=== PATIENT | female | born 1960 | race Hispanic/Latino ===

== ENCOUNTER 2021-04-24 07:01 | Day surgery (SDC) | payer OTHER ==
[2021-04-22 11:05] LABS: Hematocrit 42.2 % (30.3-42.9); Hemoglobin 13.1 gm/dl (10.1-14.3); Mean Corpuscular HGB Conc 31 % (30-34); Mean Corpuscular Volume 82 fl (79-97); Platelet Count 289 K/mm3 (140-440); Red Blood Count 5.13 M/mm3 (3.65-5.03); Red Cell Distribution Width 14.8 % (13.2-15.2)
[2021-04-22 11:22] LABS: BUN/Creatinine Ratio 21; Blood Urea Nitrogen 15 mg/dL (7-17); Hemolysis Index 2
[2021-04-24] MEDS ORDERED: LACTATED RINGERS 1,000 ML IV SCH (07:40)
[2021-04-24] MEDS ORDERED: LACTATED RINGERS 1,000 ML ONE (07:47)
--- NOTE | 2021-04-24 07:50 | History and Physical Report ---
History of Present Illness Date of examination: 04/24/21 Chief complaint: Surgery Admit History of present illness: Akila Faulkner is a 60 y/o Female that presents to [facility] for surgical intervention. She has a history of failed back syndrome, s/p multiple lumbar surgeries. She underwent SCS trial several weeks ago, which conferred significant relief of her pain. She is here today for permanent implantation. Medications and Allergies Allergies Allergy/AdvReac Type Severity Reaction Status Date / Time adhesive AdvReac Intermediate Rash Verified 04/15/21 16:14 ketorolac [From Toradol] AdvReac Intermediate Rash Verified 04/15/21 16:14 Penicillins AdvReac Intermediate Rash Verified 04/15/21 16:14 Sulfa (Sulfonamide AdvReac Intermediate Rash Verified 04/15/21 16:14 Antibiotics) Home Medications Medication Instructions Recorded Confirmed Last Taken Type B-Complex with Vitamin C [Super B 1 each PO DAILY 04/15/21 04/15/21 Unknown History Complex-Vitamin C] Lexapro 20 mg PO DAILY 04/15/21 04/15/21 Unknown History amLODIPine [Norvasc] 5 mg PO DAILY 04/15/21 04/15/21 Unknown History traZODone [Desyrel] 50 mg PO DAILY 04/15/21 04/15/21 Unknown History Active Meds: Active Medications Clindamycin HCl (Cleocin 900 Mg/50 Ml) 900 mg in 50 mls @ 100 mls/hr IV PREOP ONE; Protocol Stop: 04/24/21 09:29 Review of Systems All systems: negative (what is specified in HPI) Physical Examination - Vital Signs Vital Signs: Vital Signs Temp Pulse Resp BP Pulse Ox 98.2 F 87 20 162/102 95 04/22/21 10:35 04/22/21 10:35 04/22/21 10:35 04/22/21 10:35 04/22/21 10:35 - Physical Exam Narrative exam: seen and examined morbid obesity no acute distress NC/AT RRR breathing non-labored abdomen soft no cyanosis or clubbing A&Ox3 CNII-XII intact motor strength full sensation intact reflexes +2 Results - Laboratory Findings CBC and BMP: 04/22/21 00:01 04/22/21 00:01 Abnormal Lab Findings: Abnormal Labs 04/22/21 04/22/21 00:01 00:01 RBC 5.13 H MCH 26 L Glucose 117 H Assessment and Plan 60 y/o F w/ failed back syndrome, lumbosacral radiculitis -to OR for thoracic laminotomy for SCS placement
[2021-04-24] MEDS ORDERED: VANCOMYCIN/NS 1 GM/250 ML 1 GM/250 ML BAG IV NR (09:00)
[2021-04-24] MEDS ORDERED: VANCOMYCIN 2,000 MG in SODIUM CHLORIDE 0.9% 500 ML 500 ML IV SCH (09:00)
[2021-04-24 14:05] VITALS: BP 155/87
== END 2021-04-24 07:02 | disposition home or self-care (01) ==
LOC: OR 07:01
PROVIDERS: ATTEND Psychiatry & Neurology Neurology
DX: G89.29 Other chronic pain (principal); M54.42 Lumbago with sciatica, left side; Z53.8 Procedure and treatment not carried out for other reasons; Z20.822 Contact with and (suspected) exposure to COVID-19; G47.30 Sleep apnea, unspecified; K21.9 Gastro-esophageal reflux disease without esophagitis; M19.90 Unspecified osteoarthritis, unspecified site; F32.9 Major depressive disorder, single episode, unspecified; Z90.710 Acquired absence of both cervix and uterus; Z98.890 Other specified postprocedural states; Z72.89 Other problems related to lifestyle; Z88.0 Allergy status to penicillin; Z88.2 Allergy status to sulfonamides; Z88.8 Allergy status to other drugs, medicaments and biological substances
CPT/HCPCS: 36415; 80048; 82962; 85027; J3370; J7040; J7120; U0003; J3490